=== PATIENT | female | born 1990 | race African-American/Black ===

== ENCOUNTER 2016-07-28 15:28 | Inpatient (IN) | payer MEDICAID, SELFPAY ==
[2016-07-28] MEDS ORDERED: PRENA1 CHEW TA1.4 M1 PO (16:43)
[2016-07-28 17:08] LABS: BASO % 0.3 % (0-2); EOS % 2.2 % (0-7); EOSINOPHIL ABSOLUTE COUNT 0.2 tho/cmm (0.0-0.7); HCT-HEMATOCRIT 36.4 % (34.0-49.0); HGB-HEMOGLOBIN 12.2 gm/dl (12.0-15.5); IMMATURE GRANULOCYTES ABSOLUTE 0.02 tho/cmm (0-0.03); IMMATURE GRANULOCYTES PERCENT 0.2 % (0-0.3); LYMPH % 29.2 % (20-45); LYMPH ABSOLUTE COUNT 2.8 tho/cmm (0.8-4.5); MCHC MEAN CORPUSCULAR HGB CONC 33.5 % (32.0-36.0); MCV (MEAN CELL VOLUME) 89.7 fl (82.0-96.0); MEAN PLATELET VOLUME 11.1 cmc (9.4-12.4); MONO % 5.5 % (0-12); MONOCYTE ABSOLUTE COUNT 0.5 tho/cmm (0.0-1.2); NEUTROPHILS % 62.6 % (40-80); PLATELET COUNT 147 tho/cmm (150-450); RED BLOOD COUNT 4.06 mil/cmm (4.00-5.20); RED CELL DISTRIBUTION WIDTH 14.3 % (12.4-16.4); WHITE BLOOD COUNT 9.6 tho/cmm (4.0-10.0)
[2016-07-29 06:31] LABS: BASO % 0.2 % (0-2); EOSINOPHIL ABSOLUTE COUNT 0.2 tho/cmm (0.0-0.7); HCT-HEMATOCRIT 32.4 % (34.0-49.0); HGB-HEMOGLOBIN 10.7 gm/dl (12.0-15.5); IMMATURE GRANULOCYTES ABSOLUTE 0.02 tho/cmm (0-0.03); IMMATURE GRANULOCYTES PERCENT 0.2 % (0-0.3); LYMPH % 24.2 % (20-45); LYMPH ABSOLUTE COUNT 2.9 tho/cmm (0.8-4.5); MCH (MEAN CORPUSCULAR HGB) 29.3 pg (28.0-32.0); MCV (MEAN CELL VOLUME) 88.8 fl (82.0-96.0); MEAN PLATELET VOLUME 11.7 cmc (9.4-12.4); MONO % 6.3 % (0-12); MONOCYTE ABSOLUTE COUNT 0.8 tho/cmm (0.0-1.2); NEUTROPHIL ABSOLUTE COUNT 8.1 tho/cmm (1.6-8.0); NEUTROPHIL-AUTOMATED 8.1 tho/cmm (1.6-8.0); NEUTROPHILS % 67.1 % (40-80); PLATELET COUNT 162 tho/cmm (150-450); RED BLOOD COUNT 3.65 mil/cmm (4.00-5.20); RED CELL DISTRIBUTION WIDTH 14.1 % (12.4-16.4)
[2016-07-30] MEDS ORDERED: IBUPROFEN800 M1 PO (10:47)
== END 2016-07-30 12:30 | DRG 775 ==
LOC: LDR 15:28 → OBGD 22:27
PROVIDERS: Specialist; ADMIT Obstetrics & Gynecology
PROC: 0HQ9XZZ Repair Perineum Skin, External Approach (ICD-10-PCS; principal; 2016-07-28)
PROC: 10E0XZZ Delivery of Products of Conception, External Approach (ICD-10-PCS; 2016-07-28)
DX: O48.0 Post-term pregnancy (principal); O70.0 First degree perineal laceration during delivery; Z3A.40 40 weeks gestation of pregnancy; Z37.0 Single live birth
CPT/HCPCS: J2590